=== PATIENT | male | born 2000 | race African-American/Black ===

== ENCOUNTER 2022-08-11 14:41 | Emergency (ER) | payer OTHER ==
[~2022-08-11] VITALS: Ht 185.4 cm; Wt 65.9 kg
[2022-08-11] MEDS ORDERED: IBUPROFEN 600 MG TABLET PO ONE (16:00)
[2022-08-11] MEDS ORDERED: AMOX TR/POT CLAV 875 MG/125 MG TABLET PO ONE (16:00)
[2022-08-11 17:00] VITALS: BP 129/82
[2022-08-11] MEDS ORDERED: AMOX1TAB16 PO (17:21)
[2022-08-11] MEDS ORDERED: IBUP-1492 PO (17:21)
== END 2022-08-11 15:47 | disposition home or self-care (01) ==
LOC: EMS 14:45
DX: S62.336A Displaced fracture of neck of fifth metacarpal bone, right hand, initial encounter for closed fracture (principal); S62.337A Displaced fracture of neck of fifth metacarpal bone, left hand, initial encounter for closed fracture; S61.452A Open bite of left hand, initial encounter; F12.90 Cannabis use, unspecified, uncomplicated; M25.551 Pain in right hip; Y04.8XXA Assault by other bodily force, initial encounter; Y93.89 Activity, other specified; Y92.89 Other specified places as the place of occurrence of the external cause; Y99.8 Other external cause status
CPT/HCPCS: 73502; 99284